=== PATIENT | male | born 2000 | race Caucasian/White ===

== ENCOUNTER 2022-06-23 20:29 | Emergency (ER) | payer MEDICAID, SELFPAY ==
[2022-06-23 21:01] VITALS: BP 108/53; PULSE 67; RESP 16; TEMP 36.7; O2SAT 96; BMI 23.5
== END 2022-06-24 01:32 | disposition left against medical advice (07) ==
PROVIDERS: Emergency Provider Emergency Medicine
DX: J02.9 Acute pharyngitis, unspecified (principal)
CPT/HCPCS: 99281

== ENCOUNTER 2022-06-30 18:44 | Emergency (ER) | payer MEDICAID, SELFPAY ==
--- NOTE | 2022-06-30 20:10 | ED_ITS ---
HPI - General Adult General Chief complaint: Dental/Oral Stated complaint: Sore throat Source: patient Mode of arrival: ambulatory Limitations: no limitations History of Present Illness HPI narrative: 21 year old male presents w/ sore throat described as burning/stinging, and swelling to back of throat per patient x 2 weeks. He feels like he is swallowing pus. Denies changes in voice, difficulty swallowing, fevers, chills, chest pain, shortness of breath, nausea, vomiting, headache, vision changes, dizziness, weakness, recent dental work. Patient also concern for possible STD exposure and would like prophylactic treatment Related Data Previous Rx's Medication Instructions Recorded amoxicillin 875 mg-potassium 1 tab PO BID 10 days #20 tabs 06/30/22 clavulanate 125 mg tablet doxycycline hyclate 100 mg capsule 100 mg PO BID 7 days #14 caps 06/30/22 metronidazole 500 mg tablet 500 mg PO BID 7 days #14 tabs 06/30/22 prednisone 20 mg tablet 40 mg PO DAILY 5 days #10 tabs 06/30/22 Allergies Allergy/AdvReac Type Severity Reaction Status Date / Time No Known Allergies Allergy Unverified 12/29/19 16:45 Review of Systems Review of Systems: Constitutional : No Weight loss, No Fever, No Chills, No Fatigue, No Malaise ENT/Mouth : + sore throat, No Rhinorrhea Eyes: No Eye Pain, No Swelling, No Redness Cardiovascular : No Chest Pain, No SOB, No Dyspnea on Exertion, No Orthopnea, No Edema, No Palpitations Respiratory : No Cough, No Sputum, No Wheezing Gastrointestinal : No Nausea, No Vomiting, No Diarrhea, No Constipation, No abdominal Pain, No Hematochezia, No Melena Genitourinary : No Dysuria, No Urinary Frequency, No Hematuria, Musculoskeletal : No joint pain, No Myalgias, No Joint Swelling Skin : No Skin Lesions, No rash Neuro : No Weakness, No Numbness, No Dizziness, No Headache Psych : No Anxiety/Panic, No Depression All other systems reviewed and are negative Yes all other systems are reviewed and are negative [facility] Past Medical History Attestation statement: The following information was validated with the patient. Source: old records reviewed and nursing notes reviewed Physical Exam ED Vital Signs: Vital signs stable Appearance: Alert.? Oriented X3.? No acute distress.? Head: Normocephalic, atraumatic, no step-offs or deformities Eyes: Pupils equal, round and reactive to light.? ENT: Pharynx with slight erythema to posterior pharynx, bilateral tonsils with erythema however no edema, uvula midline, no exudate on tonsils, no signs of abscess. Patient speaking in full sentences controlling secretions well palpable lymphadenopathy ? Neck: Normal inspection.? Neck supple.? CVS: Normal heart rate and rhythm.? Pulses normal.? Respiratory: No respiratory distress.? Breath sounds normal.? Abdomen: Soft and nontender.? Skin: Skin warm and dry.? Normal skin color.? Normal skin turgor.? Extremities: No lower extremity edema.? No calf ttp. 5/5 strength to bilateral upper and lower extremities Back: No midline tenderness, no C-spine tenderness, full range of motion, no CVA tenderness bilaterally Neuro: Oriented X 3.? No motor deficit.? No sensory deficit. CN 2-12 intact Course Reevaluation(s) Reevaluation #1: Patient received prophylactic treatment. Will discharge home with antibiotics. Gave him a PCP list for follow-up. Educated patient on diagnosis and treatment plan, answered all question, patient verbalizes understanding. At this time patient will be discharged home, advised to return with new or worsening symptoms. Educated on worrisome signs and symptoms and when to return. At this time I feel comfortable discharge home. Time: 20:18 Medical Decision Making Medical Decision Making [facility] Narrative: 2014 21-year-old male presents with sore throat/discomfort to throat x2 weeks. Worsening. Feels like his swallowing pus Physical exam significant for Pharynx with slight erythema to posterior pharynx, bilateral tonsils with erythema however no edema, uvula midline, no exudate on tonsils, no signs of abscess. Patient speaking in full sentences controlling secretions well palpable lymphadenopathy Likely pharyngitis or viral illness. Unlikely peritonsillar abscess, epiglottitis. Concerns for possible STDs Plan at this time viral testing. Patient agrees to prophylactic treatment for gonorrhea, chlamydia and trichomonas. 500mg IM ceftriaxone has been given here and scripts for doxycycline 100 mg po BID X 7 days and metronidazole 500 mg po BID X 7 days have been given to the patient. Educated on safe sex practices, full pannel STD testing and speaking to? partners on possible STD. Differential Diagnosis Differential Diagnoses: The differential diagnosis associated with the presentation includes Likely pharyngitis or viral illness. Unlikely peritonsillar abscess, epiglottitis. Concerns for possible STD Admission/Observation Consideration of admission/observation: Escalation of care including admission/observation considered Core Measures AMI core measures followed: Yes Measure exclusions: not indicated Critical Care Time Critical Care Time Critical Care Time: No Discharge Plan Discharge Clinical Impression: Pharyngitis, Encounter for assessment of STD exposure Patient Disposition: Home, Self-Care Instructions: Pharyngitis (ED) Additional Instructions: Take your medications as prescribed. If you were prescribed antibiotics today, it is important that you take your medication to their entirety, do not skip any doses, do not finish them early. Follow-up with your primary care provider this week. Return to the emergency department with new or worsening symptoms. Such as fevers, chills, chest pain, shortness of breath, nausea, vomiting, dizziness, headache, vision changes, lethargy In case of emergency call 911 You were treated here today with ceftriaxone, a medication that treats gonorrhea. I have sent to your pharmacy Metronidazole that covers trichomonas, and Doxycycline which covers for chlamydia. Please be reevaluated by a healthcare provider after completing your antibiotics. Do not stop them early, do not skip any doses. Until you are reevaluated by a health care provider please practice safe sex as disucussed. Please also have a conversation with your sexual partners.? I also advise you to obtain full panel STD testing to test for other STDs including HIV, Hepatitis B & C and syphilis with your PCP or a local clinic. Prescriptions: New prednisone 20 mg tablet 40 mg PO DAILY 5 Days Qty: 10 0RF amoxicillin-pot clavulanate 875-125 mg tablet 1 tab PO BID 10 Days Qty: 20 0RF doxycycline hyclate 100 mg capsule 100 mg PO BID 7 Days Qty: 14 0RF metronidazole 500 mg tablet 500 mg PO BID 7 Days Qty: 14 0RF Referrals: Physician,None [Primary Care Provider] - 2 days Stand Alone Forms: Work/School Release
[2022-06-30 20:11] VITALS: BP 117/64; PULSE 70; RESP 16; TEMP 36.5; O2SAT 99; BMI 23.5
[2022-06-30] MEDS: cefTRIAXone sodium 500 MG, Lidocaine HCl 1 % MPF 1 ML IM (20:48)
[2022-06-30] MEDS: Doxycycline Monohydrate 100 MG CAPSULE PO (20:49)
[2022-06-30 20:53] LABS: IDNOW Serial# 08D9AD1C; Strep A Nucleic Acid Negative (Negative)
[2022-06-30 20:58] LABS: COVID-19 Test Negative (Negative); IDNOW Serial# BCCEAD1C
[2022-06-30 21:04] LABS: IDNOW Serial# 55D5AD1C; Influenza A Negative (Negative); Influenza B2 Negative (Negative)
[2022-07-01 06:50] LABS: CT PCR NOT DETECTED (Not Detect.); NG PCR NOT DETECTED (Not Detect.)
== END 2022-06-30 20:58 | disposition home or self-care (01) ==
PROVIDERS: Physician Assistant; Emergency Provider Internal Medicine
DX: J02.9 Acute pharyngitis, unspecified (principal); Z20.2 Contact with and (suspected) exposure to infections with a predominantly sexual mode of transmission; Z20.822 Contact with and (suspected) exposure to COVID-19
CPT/HCPCS: 0353U; 87502; 87635; 87651; 96372; 99282; 99284; J0696

== ENCOUNTER 2023-03-29 15:11 | Emergency (ER) | payer MEDICAID, SELFPAY ==
--- NOTE | ~2023-03-29 | US_ITS ---
EXAMINATION: US SCROTUM CLINICAL INFORMATION: Left scrotal swelling/mass. Question abscess. COMPARISON: None available. TECHNIQUE: A sonogram of the scrotum was performed assessing monreal-scale appearance and color Doppler flow. Spectral Doppler analysis of the arterial and venous flow were performed in the testes bilaterally. FINDINGS: Right testis measures 4.8 cm x 2.7 cm x 3.4 cm for a volume of 23.5 mm. The left testis measures 4.16 x 2.4 cm x 3.8 cm for a volume of 22.4 mm. The left and right testes and left and right epididymides are normal in appearance and demonstrate normal color flow along with normal low resistive arterial and venous waveforms within the testes. Trace anechoic bilateral hydroceles are noted. A 5 mm diameter extra-testicular scrotolith is noted in the region of the left epididymal body. The left inguinal region. Scattered lymph nodes measuring up to 1 cm in short axis diameter noted and may represent reactive lymphadenopathy. These lymph nodes maintain normal architecture. Region of focal scrotal wall thickening and increased color flow is noted over region measuring approximately 5.7 cm x 1.7 cm x 5.0 cm and is located at a site of self identified drainage. No associated discrete fluid collection noted in this region. US/US scrotum doppler IMPRESSION: 1. Focal scrotal wall thickening and hyperemia at the site of self-identified drainage measuring 5.7 cm x 1.7 cm x 5.0 cm. No associated discrete fluid collection. This finding is suspicious for a region of focal cellulitis. 2. Scattered mildly enlarged lymph nodes within the left inguinal region measuring up to 1 cm in short axis diameter. These lymph nodes maintain normal architecture and may represent reactive lymphadenopathy. 3. Incidental benign-appearing 5 mm left-sided extratesticular scrotolith in the region of the left epididymis.
[2023-03-29 15:38] VITALS: BP 118/57; PULSE 82; RESP 18; TEMP 36.7; O2SAT 97; BMI 23.6
[2023-03-29 19:33] LABS: Appearance Urine Clear; Color Urine Yellow; Glucose Urine UA Negative (Negative); Leukocyte Esterase Urine Negative (Negative); Nitrite Urine Negative (Negative); PH 8.5 (5.0-9.0); Urine Blood Negative (Negative); Urine Ketones Negative (Negative); Urine Protein Negative (Neg-Trace)
--- NOTE | 2023-03-29 20:36 | ED.GENADULT ---
HPI - General Adult General Chief complaint: General Medical Stated complaint: cyst on groin Time Seen by Provider: 03/29/23 18:55 Source: patient Mode of arrival: ambulatory Limitations: no limitations History of Present Illness HPI narrative: 22-year-old male presents to the ED for left testicular pain. Patient feels a lump on left testicle since yesterday. Patient denies any trauma, dysuria, hematuria, or penile discharge. Patient denies any abdominal pain nausea or vomiting. Related Data Previous Rx's Medication Instructions Recorded amoxicillin 875 mg-potassium 1 tab PO BID 10 days #20 tabs 06/30/22 clavulanate 125 mg tablet doxycycline hyclate 100 mg capsule 100 mg PO BID 7 days #14 caps 06/30/22 metronidazole 500 mg tablet 500 mg PO BID 7 days #14 tabs 06/30/22 prednisone 20 mg tablet 40 mg (2 x 20 mg) PO DAILY 5 days 06/30/22 #10 tabs cephalexin 500 mg capsule 500 mg PO QID 7 days #28 caps 03/29/23 doxycycline hyclate 100 mg capsule 100 mg PO BID 7 days #14 caps 03/29/23 naproxen 500 mg tablet 500 mg PO BID PRN pain 7 days #14 03/29/23 tabs Allergies Allergy/AdvReac Type Severity Reaction Status Date / Time No Known Allergies Allergy Verified 03/29/23 15:38 Review of Systems Review of Systems: Left testicular pain Yes all other systems are reviewed and are negative [facility] Social History Social History Advance Directives: No Advance Directives Information Provided: No Physical Exam ED Vital Signs: Vital Signs - 24 hr 03/29/23 15:38 03/29/23 21:52 Temperature 98.1 F Pulse Rate 82 73 Respiratory Rate 18 18 Blood Pressure 118/57 L Pulse Oximetry 97 98 Oxygen Delivery Method Room Air Room Air BMI result Body Mass Index 23.6 Const General: cooperative, healthy appearing, comfortable, no acute distress, well developed, alert and awake Orientation/consciousness: oriented to person, oriented to place, oriented to time and patient oriented x3 HENMT Head: Yes normal to inspection, Yes No palpable skull fracture present, Yes normocephalic and Yes atraumatic Eyes General: appearance normal, both eyes and all related structures Neck Neck: Yes normal visual inspection, Yes full ROM, Yes no lymphadenopathy, Yes no meningeal signs, Yes trachea midline, Yes supple, No anterior neck swelling and No tender Chest Chest palpation & inspection: normal inspection of the chest and normal palpation of entire chest wall Resp Effort & Inspection: normal respiratory effort and able to speak in complete sentences Auscultation: clear to auscultation bilaterally Cardio Jugular venous distension: no JVD Heart sounds: S1 normal heart sound present and S2 normal heart sound present Penis: normal penis and circumcised Meatus: meatus normal Scrotum: scrotal mass Male genitals images: 1. Tender area probable small hard mass. Negative fluctuance. Skin General skin exam: no rashes or lesions noted, elasticity normal and turgor normal Neuro General: oriented to person, oriented to place, oriented to time, patient oriented x3, gait normal, tone normal, moves all extremities, Normal light touch and pain sensation, no meningeal signs, no focal motor deficits, CN's II-XI intact bilaterally and normal sensation to monofilament Extrem General: Yes normal to inspection and Yes full ROM Psych Appearance: grossly normal, well kempt and not disheveled Medical Decision Making Medical Decision Making [facility] Narrative: 22-year-old male with painful but is a lump on left upper scrotum for couple of days. Patient denies any penile discharge, hematuria, or dysuria. Patient denies any recent trauma. Scrotal ultrasound ordered, UA, and chlamydia/gonorrhea PCR 9:43PM: ULTRASOUND OF THE SCROTUM NEGATIVE FOR EPIDIDYMITIS OR TORSION. NEGATIVE FOR ABSCESS. POSITIVE FOR CELLULITIS. ULTRASOUND and physical EXAM NEGATIVE FOR MIRIAM GANGRENE. PATIENT WILL BE DISCHARGED WITH ANTIBIOTICS. PRESENTLY NO INDICATION FOR INCISION AND DRAINAGE. Differential Diagnosis Differential Diagnoses: The differential diagnosis associated with the presentation includes (CELLULITIS, EPIDIDYMITIS, ABSCESS, TORSION) Lab Data [facility] Lab Attestation statement: I reviewed the patient's lab results. Labs: Lab Results 03/29/23 Range/Units 19:26 Urine Color Yellow Urine Appearance Clear Urine pH 8.5 (5.0-9.0) Ur Specific [place] 1.020 (1.005-1.025) Urine Protein Negative (Neg-Trace) mg/dL Urine Glucose (UA) Negative (Negative) mg/dL Urine Ketones Negative (Negative) mg/dL Urine Blood Negative (Negative) Urine Nitrite Negative (Negative) Ur Leukocyte Esterase Negative (Negative) Chlam trachomat DNA PCR DETECTED A (Not Detect.) N.gonorrhoeae DNA (PCR) NOT DETECTED (Not Detect.) Independent Interpretation I performed an independent interpretation of an: Ultrasound Radiology Impression Discussion of test interpretation with radiology: I have reviewed the radiologist's reading. Prescription Management I considered prescription management with: Pain Medication and Antibiotic Discharge Plan Discharge Clinical Impression: Cellulitis, scrotum Patient Disposition: Home, Self-Care Instructions: Cellulitis (ED) Additional Instructions: RECOMMEND FOLLOW-UP WITH YOUR PRIMARY CARE PROVIDER. RETURN TO THE ED IMMEDIATELY FOR ANY WORSENING SCROTAL TESTICULAR PAIN, DRAINAGE, REDNESS, PENILE DISCHARGE, PENILE LESIONS, ABDOMINAL PAIN, NAUSEA, VOMITING, OR ANY OTHER CONCERNING SYMPTOMS. Prescriptions: New cephalexin 500 mg capsule 500 mg PO QID 7 Days Qty: 28 0RF doxycycline hyclate 100 mg capsule 100 mg PO BID 7 Days Qty: 14 0RF naproxen 500 mg tablet 500 mg PO BID PRN (Reason: pain) 7 Days Qty: 14 0RF No Action prednisone 20 mg tablet 40 mg PO DAILY 5 Days Qty: 10 0RF amoxicillin-pot clavulanate 875-125 mg tablet 1 tab PO BID 10 Days Qty: 20 0RF doxycycline hyclate 100 mg capsule 100 mg PO BID 7 Days Qty: 14 0RF metronidazole 500 mg tablet 500 mg PO BID 7 Days Qty: 14 0RF Referrals: [facility] [Provider Group] (SCROTAL CELLULITIS) Stand Alone Forms: Work/School Release Interventions: ED Discharge Assessment Last Done: 03/29/23 21:52 Discharge Date/Time: 03/29/23 21:52 Print Language: Tunisian
[2023-03-29 21:52] VITALS: PULSE 73; RESP 18; O2SAT 98
[2023-03-30 05:56] LABS: CT PCR DETECTED (Not Detect.); NG PCR NOT DETECTED (Not Detect.)
== END 2023-03-29 21:52 | disposition home or self-care (01) ==
PROVIDERS: Physician Assistant; Emergency Provider Emergency Medicine
DX: N49.2 Inflammatory disorders of scrotum (principal); N50.9 Disorder of male genital organs, unspecified; N50.812 Left testicular pain; Z72.89 Other problems related to lifestyle
CPT/HCPCS: 0353U; 76870; 81003; 93975; 99283; 99284